=== PATIENT | female | born 1975 | race Caucasian/White ===

== ENCOUNTER 2019-08-11 08:35 | Emergency (ER) | payer OTHER, SELFPAY ==
[2019-08-11] VITALS (10 sets, daily range): BP systolic 160–197; BP diastolic 103–130; PULSE 89–122; RESP 16–23; TEMP 36.8; O2SAT 94–100; BMI 46.0
--- NOTE | 2019-08-11 08:45 | CT_ITS ---
STUDY: CT BRAIN WITHOUT CONTRAST REASON FOR EXAM: Female, 43 years old. FALL DOWN STAIRS-LAC TO UPPER RT LIP ABRASION TO FOREHEAD RADIATION DOSAGE (If Supplied By Facility): CTDIvol = ( 44.99 ) mGy, DLP = ( 779.24 ) mGycm TECHNIQUE: Transaxial CT imaging of the brain was performed without administration of intravenous contrast material. Individualized dose optimization techniques were used for this CT. COMPARISON: No relevant priors. FINDINGS: There is a right, extracalvarial, prefrontal hematoma/bruise. No evident acute osseous abnormality. Normal size ventricles and extra-axial spaces for the patient''s age. Normal white matter tracts of the cerebral hemispheres. Normal basal ganglia and thalami. Normal brainstem. Normal cerebellum. There is no intracranial hemorrhage. There are no findings of an acute ischemic infarction. Normal visualized paranasal sinuses. CT/Brain/Head without Contrast IMPRESSION: No CT evident acute intracranial pathology. Right, extracalvarial, prefrontal hematoma/bruise. Electronically Signed: Shashi Tay MD at 9:47 EST , Service support ,
--- NOTE | 2019-08-11 08:46 | RAD_ITS ---
STUDY: X-RAY - RIGHT WRIST REASON FOR EXAM: Female, 43 years old. right wrist pain s/p fall today TECHNIQUE: 3 view(s) of the wrist were obtained. COMPARISON: None. FINDINGS: There is an acute, moderately impacted, dorsally angulated comminuted fracture of distal radial metaphysis with fracture lucency extension into the radiocarpal joint. There is significant associated soft tissue swelling/edema. RAD/Wrist min 3 Views IMPRESSION: Acute, impacted, angulated Colles'' fracture with fracture lucency extension into/involvement of the radiocarpal joint. Electronically Signed: Shashi Tay MD at 10:45 EST , Service support ,
--- NOTE | 2019-08-11 08:46 | RAD_ITS ---
STUDY: X-RAY - RIGHT KNEE REASON FOR EXAM: Female, 43 years old. right knee pain s/p fall down stairs today TECHNIQUE: 4 view(s) of the knee. COMPARISON: None. FINDINGS: Alignment appear anatomic. There is no acute fracture lucency. There is no cortical step-off. There is no tibial plateau split or depression. There is mild tricompartmental osteoarthritis manifested by minimal marginal osteophyte formation. Minimal peaking of the tibial spines within the intercondylar notch probably represents an additional manifestation of osteoarthritis. There is bilateral subluxation of the patella on the sunrise view. There is no definite radiopaque joint loose body. There is significant soft tissue swelling/edema within the prepatellar space. RAD/Knee 4 or More Views IMPRESSION: No evident acute osseous abnormality. Mild to minimal tricompartmental osteoarthritis. No knee joint effusion. Lateral patellar subluxation may be positional versus represent a manifestation of retinaculum pathology. Significant prepatellar soft tissue swelling/edema/hematoma. Electronically Signed: Shashi Tay MD at 10:43 EST , Service support ,
--- NOTE | 2019-08-11 08:46 | RAD_ITS ---
STUDY: X-RAY - RIGHT HUMERUS REASON FOR EXAM: Female, 43 years old. right shoulder pain /p fall today -- unable to move arm TECHNIQUE: 3 view(s) of the humerus. COMPARISON: None. FINDINGS: There is an acute, impacted, comminuted fracture of the proximal humerus with involvement of the humeral head. There is evidence of mild hemarthrosis. A major humeral head fracture fragment does articulate normally with the glenohumeral joint. Regions of the right lung within the field of view appear unremarkable. RAD/Humerus min 2 Views IMPRESSION: Acute, impacted, comminuted fracture of proximal humerus involving the right humeral head. Mild hemarthrosis. Electronically Signed: Shashi Tay MD at 10:47 EST , Service support ,
[2019-08-11] MEDS: Morphine 4 MG/ML Syringe IV ×3 (08:59→14:40)
[2019-08-11] MEDS: Ondansetron 4 MG/2 ML Vial IV (08:59)
[2019-08-11] MEDS: 0.9% Normal Saline 1,000 ML 150 ML IV (09:00)
[2019-08-11] MEDS: Lidocaine/Epi/Tetracaine 50 ML 1 APPLIC TOPICAL (10:24)
--- NOTE | 2019-08-11 10:40 | RAD_ITS ---
STUDY: X-RAY - RIGHT SHOULDER REASON FOR EXAM: Female, 43 years old. Axillary view only per ER doc, fell, pain TECHNIQUE: 1 view(s) of the shoulder. COMPARISON: None. FINDINGS: There is an impacted, comminuted fracture of the proximal humeral shaft and humeral head. No neo dislocation is identified. Imaged regions of the right ribs, right clavicle, right scapula, right lung and cardiomediastinal silhouette that appear within the field of view appear unremarkable. RAD/Shoulder One View IMPRESSION: Acute, impacted, comminuted fracture of proximal humeral shaft and right humeral head. Electronically Signed: Shashi Tay MD at 11:56 EST , Service support ,
--- NOTE | 2019-08-11 10:40 | RAD_ITS ---
STUDY: X-RAY - LEFT HAND, ATTENTION INDEX FINGER REASON FOR EXAM: Female, 43 years old. FALL, PAIN TECHNIQUE: 3 view(s) of the finger were obtained. COMPARISON: None. FINDINGS: Osseous alignments appear anatomic. There is no acute fracture lucency. There is no cortical step-off. There is no radiopaque joint despite no radiopaque soft tissue foreign body. RAD/Finger(s) Min 2 Views IMPRESSION: There is no plain film evident acute osseous abnormality. There is mild to minimal multifocal osteoarthritis. Electronically Signed: Shashi Tay MD at 11:58 EST , Service support ,
[2019-08-11] MEDS: Diphth,Pertuss(Acell),Tet Vac 0.5 ML Vial IM (11:25)
[2019-08-11] MEDS: Propofol 200 MG/20 ML Vial IV BOLUS (14:16)
--- NOTE | 2019-08-11 14:26 | RAD_ITS ---
STUDY: X-RAY - RIGHT WRIST REASON FOR EXAM: Female, 43 years old. post reduction TECHNIQUE: 3 view(s) of the wrist were obtained. COMPARISON: Right wrist images earlier today at 9:20 AM. FINDINGS: Previously identified, acute, impacted, angulated Colles'' fracture has been reduced and is in immobilization material. Anatomic alignment has been reestablished and fracture fragments appear well opposed. RAD/Wrist min 3 Views IMPRESSION: Previously identified, acute, impacted, angulated Colles'' fracture has been reduced and is in immobilization material. Anatomic alignment has been reestablished and fracture fragments appear well opposed. Electronically Signed: Shashi Tay MD at 15:51 EST , Service support ,
--- NOTE | 2019-08-11 14:55 | ED.DCSUM_ITS ---
- ER Visit Summary Date of Service: 08/11/19 Chief Complaint: [Fall] History of Present Illness: The patient is a 43 F [resents the emergency department after sustaining a fall this morning down a flight of steps. Patient is visiting from out of town and staying with a friend. She was coming down the steps and she lost her balance falling and hitting her head. Patient states she put a hole in the drywall but does not think she hit a stud. Patient complaining of head pain as well as pain to her right wrist and right shoulder. She denies any neck pain. She denies any paresthesias. Patient has history of hypothyroidism. Patient is from the [facility] visiting. She is unsure of her last tetanus.] Physical Examination: [HEPETERSON-PERRLA, EOMI. Cranial nerves II through XII grossly intact. TMs clear. Mucous membranes moist. No adenopathy. Patient has multiple superficial abrasions to her forehead. Patient has a 3 cm horizontal laceration just above the vermilion border of the right upper lip that is through and through. The mucosal surface of the laceration is well approximated and is not gaping open and there is no fat extruding from it. Cardiovascular-regular rate and rhythm without murmur or ectopy Lungs-clear to auscultation, chest wall stable without crepitus or subcu emphysema Abdomen-normoactive bowel sounds, soft, nontender, no rebound or rigidity, no peritoneal signs. Extremities-intact ?4, normal range of motion, normal pulses. Right arm-patient has diffuse tenderness over the proximal humerus. Some soft tissue swelling and limited range of motion secondary to pain. Patient also has obvious deformity to the right wrist with decreased range of motion. No open areas noted. She is neurovascular intact distally. Right knee-patient has diffuse soft tissue swelling as well as some ecchymosis and bruising over the prepatellar region. She has tenderness over the patella. She has pain with range of motion flexion extension. Vascular intact distally. Test Results: [CT scan of the brain without contrast showed nothing acute. X- rays of the right knee showed no fractures. X-rays of the right proximal humerus showed a fracture of the humeral head that is comminuted. Patient also had x-rays of the right wrist which showed a distal radius fracture that is comminuted and displaced.] Emergency Department Course and Treatment: [Laceration repair-wound sterilely draped and prepped. Patient had let solution applied initially for anesthesia. Wound cleansed with Shur-Clens and irrigated with copious saline. Using 6-0 nylon a total of 4 single ruptured sutures placed with good wound edge approximation. Patient tolerated procedure well. I did not feel that she warranted a sutured to the pupil mucosa. Patient was seen by orthopedic surgeon in the emergency department for reduction of distal radius fracture. Patient was given a total of 230 mg of propofol IV with good sedation. Patient had a good reduction and postreduction films were obtained.] Treatment Plan: [Discharged home in stable condition and she will follow-up with a orthopedic surgeon in [place].] Will be given a prescription for [place] for pain and she was given a sling. Patient advised to ice and elevate the extremity. Disposition: [Discharged home in stable condition] Impression: [Mechanical fall Right proximal humerus fracture Right distal radius fracture Lip laceration 3 cm-simple repair] This note was generated with [employer] dictation software. It may contain incorrect words, spelling, and punctuation that were not noted in review of the chart prior to signing ED Disposition - Plan for ED Patient: Referrals: Care Physician,No Primary [Primary Care Provider] -
--- NOTE | 2019-08-11 15:03 | ED.DEP ---
ED Disposition - Plan for ED Patient: Instructions: FALL, Mechanical, COLLES FRACTURE, Reduction Required, FRACTURE, Shoulder, LACERATION, Face (Suture or Tape) Prescriptions: Hydrocodone Bitart/Apap 5-325 [[place] 5MG-325MG] 1 tab PO Q4H PRN PRN 2 Days #20 tab PRN Reason: Pain Prescription Printed Referrals: Care Physician,No Primary [Primary Care Provider] - 5 Days for suture removal Additional Instructions: see an orthopedic surgeon for your fractures
--- NOTE | 2019-08-11 15:07 | CON.PCM_ITS ---
Reason for Consult Date of Consultation: 08/11/19 History of Present Illness: The patient is a 43 year old female visiting from out of town. He reportedly slipped and fell down about 6 stairs at someone's home. She denies head injury or loss of consciousness. She had severe pain at the right shoulder and wrist. Also complaining of some right knee pain. She was brought to the emergency room and diagnosed with a right shoulder fracture, right wrist fracture. Orthopedics was consulted due to displaced right distal radius fracture. She denies significant numbness or tingling in the fingers. She states they do feel thick and swollen. Patient lives in [place]. Are planning to return home soon. [] Past Medical History Medical History: Medical History (Last Updated 08/11/19 @ 15:10 by Derek Lu MD) H/O: hysterectomy Z90.710 Hypothyroid E03.9 Allergies No Known Allergies Allergy (Verified 08/11/19 10:26) Home Medications: Ambulatory Orders Medication Instructions Recorded Hydrocodone Bitart/Apap 5-325 1 tab PO Q4H PRN PRN 2 Days #20 tab 08/11/19 [[place] 5MG-325MG] Surgical History: hysterectomy Smoking Status: Former smoker Tobacco Use: Non-smoker Alcohol: None Review of Systems Constitutional: Denies: Chills, Fever, Weight Change HEENT: Denies: Head Aches, Sinus Congestion, Sinus Drainage Cardiovascular: Denies: Chest Pain, Palpitations Respiratory: Denies: Cough, Shortness of breath at rest, Sputum production Gastrointestinal: Denies: Abdominal Pain, Nausea, Vomiting Genitourinary: Denies: Dysuria Musculoskeletal: Reports: Arm Pain Skin: Denies: Rash, Wounds Neurological: Denies: Numbness, Tingling, Focal weakness Hematologic/ Lymphatic: Denies: Easy Bruising, Easy Bleeding Objective: Patient is alert and oriented x3 and cooperative with exam. Seen with family members present. Seen with nursing staff and ER doctor present. Patient has pain to the right shoulder. Patient has pain and swelling of the right wrist. She is able to gently move her fingers. Normal light touch sensation at all 10 fingers. Radial pulses intact. Skin is intact. No pain at the elbow. Mild pain at the right knee with some swelling. No calf pain or swelling bilaterally. Negative Homans sign. X-rays AP lateral oblique with axillary view right shoulder shows an impacted proximal humerus fracture with some displacement. No obvious glenohumeral joint dislocation. X-rays AP lateral and oblique of right wrist shows an impacted comminuted Colles' fracture with dorsal translation apex volar angulation. Only 40 degrees of apex volar angulation. Right knee x-rays showed no obvious fracture. - Physical Exam Vitals/I&O's: Vital Signs Temp Pulse Resp BP Pulse Ox 98.2 F 109 H 18 181/110 H 95 08/11/19 08:36 08/11/19 14:52 08/11/19 14:52 08/11/19 14:52 08/11/19 14:52 Oxygen Flow Rate (L/min) [2] 2 Oxygen Flow Rate (L/min) [1 ( 2 Initial Baseline)] Oxygen Flow Rate (L/min) 2 Oxygen Delivery Method [2] Nasal Cannula Oxygen Delivery Method [1 ( Nasal Cannula Initial Baseline)] Oxygen Delivery Method Room Air Weight: 129.5 kg Body Mass Index (BMI) 46.0 Current Medications Sodium Chloride () 1,000 mls @ 150 mls/hr IV .Q6H40M ERASTO Last Admin: 08/11/19 09:00 Dose: 150 mls/hr Documented by: Assessment/Plan Right proximal humeral fracture, continue sling. Surgical intervention could be considered. I think most likely this will heal without surgery and do well. She plans to follow-up with her orthopedic surgeon in the [place] area. Right distal radius fracture comminuted displaced. Patient did consent for closed reduction in the emergency room. Risk of the procedure including but not limited to anesthetic complications it could be allergic reaction, , pain stiffness numbness. Possible need for further reduction and/or surgery on the right wrist. Patient tolerated the procedure well. She will be discharged to home with AP splints on the wrist. Ice and elevation. Arm sling. Pain medication per ER physician. Okay for gentle motion of the fingers. Patient returning to [place]. I will see her on an as-needed basis. All of their questions answered. Case discussed with ER physician. This note was generated with [employer] software. It may contain incorrect words, spelling, and punctuation that were not noted in checking the note before signing.
--- NOTE | 2019-08-11 15:11 | ED.DEP ---
ED Disposition - Plan for ED Patient: Instructions: COLLES FRACTURE, Reduction Required, FALL, Mechanical, LACERATION, Face (Suture or Tape), FRACTURE, Shoulder Prescriptions: Cephalexin [Keflex] 500 mg PO Q6 #40 cap Prescription Printed Hydrocodone Bitart/Apap 5-325 [[place] 5MG-325MG] 1 tab PO Q4H PRN PRN 2 Days #20 tab PRN Reason: Pain Prescription Printed Referrals: Care Physician,No Primary [Primary Care Provider] - 5 Days for suture removal Additional Instructions: see an orthopedic surgeon for your fractures
--- NOTE | 2019-08-11 15:15 | PCM.OP.PRO ---
Procedure Report Date of Procedure: 08/11/19 Procedure: Closed reduction right distal radius fracture Surgeon: Dr. Derek Lu Anesthesia conscious sedation per ER physician/nursing staff Complications: None EBL: 0 Indications for procedure: Please refer to dictated consult note Procedure: After obtaining appropriate consent patient underwent conscious sedation. After adequate sedation she underwent closed reduction of her right distal radius fracture with traction by the surgeon, countertraction carefully by the ER nurse. Due to known shoulder fracture we are very careful with positioning of the arm. With traction and manipulation fractures seem to be better aligned. At this point the nurse maintained traction while I applied AP splints with careful three-point mold correcting her deformity. Splints held in place with Kerlix and South wrap. Patient tolerated this well under conscious sedation. Post reduction x-rays show near anatomic alignment of the distal radius on AP lateral and oblique images. Significant comminution again noted. Post reduction exam: Patient had excellent range of motion of the fingers. Normal sensation of the fingers. She stated they no longer felt thick or swollen. Normal capillary refill.
[2019-08-11] MEDS: Cephalexin 250 MG Capsule 500 MG PO (15:27)
== END 2019-08-11 15:51 | disposition home or self-care (01) ==
LOC: ED 09:45
PROVIDERS: Emergency Provider Emergency Medicine
DX: S52.531A Colles' fracture of right radius, initial encounter for closed fracture (principal); S42.291A Other displaced fracture of upper end of right humerus, initial encounter for closed fracture; S01.511A Laceration without foreign body of lip, initial encounter; S00.81XA Abrasion of other part of head, initial encounter; W10.9XXA Fall (on) (from) unspecified stairs and steps, initial encounter; Y93.01 Activity, walking, marching and hiking; Y92.009 Unspecified place in unspecified non-institutional (private) residence as the place of occurrence of the external cause; M25.561 Pain in right knee; Z87.891 Personal history of nicotine dependence
CPT/HCPCS: 12013; 25605; 70450; 73020; 73060; 73110; 73140; 73564; 90715; 96361; 96374; 96375; 96376; 99152; 99285; J7030; A4216; J2405